=== PATIENT | female | born 1995 | race Caucasian/White ===

== ENCOUNTER 2017-01-07 19:45 | Emergency (ER) | payer MEDICAID, OTHER ==
[~2017-01-07] VITALS: Ht 167.6 cm; Wt 92.0 kg
[2017-01-07 19:47] VITALS: BP 143/69; PULSE 100; RESP 16; O2SAT 100
[2017-01-07] MEDS ORDERED: SODIUM CHLOR 0.9% 1000 ML INJ 1,000 ML IV SCH (21:45)
[2017-01-07] MEDS ORDERED: SODIUM CHLORIDE 0.9% FLUSH 10 ML FLUSH IV FLUSH PRN (21:45)
--- NOTE | 2017-01-07 21:56 | PD ---
HPI Chief Complaint: Abdominal Pain Time Seen by Provider: 21:52 Travel History International Travel<30 days: No Contact w/Intl Traveler<30days: No Traveled to known affect area: No History of Present Illness HPI Patient is a 21-year-old female presenting to emergency for evaluation of left lower quadrant abdominal pain that started approximate 5 PM this evening. Patient states the pain is 8 out of 10 and describes it as stabbing in nature. The pain radiates to her suprapubic region. Patient denies any fever, chills dysuria, vaginal discharge, vaginal bleeding. Patient states that she is approximately 11 weeks and has had an OB evaluation approximate 2 weeks ago. Patient states that she has constant vomiting with this reporting 4-5 episodes daily. She reports she was prescribed large medication but it made her itchy so she stopped taking it. This her first , her OB is Dr. Aviles. Patient denies any significant past medical history is currently taking vitamins. PFSH Past Medical History Medical History: Denies Significant Hx Diminished Hearing: No Immunizations Current: Yes ?: Past Surgical History Tonsillectomy: Yes (and adenoids) Social History Alcohol Use: No Tobacco Use: Yes (1 PPD) Substance Use: No Allergies-Medications (Allergen,Severity, Reaction): Coded Allergies: Percocet (Verified Allergy, Severe, HALLUCINATE, 01/07/17) Uncoded Allergies: diclegis (Allergy, Intermediate, 01/07/17) pt. 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 Resting comfortably in no acute distress. SKIN: Focused skin assessment warm/dry. HEAD: Atraumatic. Normocephalic. EYES: Pupils equal and round. No scleral icterus. No injection or drainage. ENT: No nasal bleeding or discharge. Mucous membranes pink and moist. NECK: Trachea midline. No JVD. CARDIOVASCULAR: Regular rate and rhythm. No murmur appreciated. RESPIRATORY: No accessory muscle use. Clear to auscultation. Breath sounds equal bilaterally. GASTROINTESTINAL: Abdomen soft, non-tender, nondistended. Hepatic and splenic margins not palpable. No rebound, no guarding. Positive bowel sounds. MUSCULOSKELETAL: No obvious deformities. No clubbing. No cyanosis. No edema. NEUROLOGICAL: Awake and alert. No obvious cranial nerve deficits. Motor grossly within normal limits. Normal speech. PSYCHIATRIC: Appropriate mood and affect; insight and judgment normal. Data Data Last Documented VS Vital Signs Date Time Temp Pulse Resp B/P Pulse Ox O2 Delivery O2 Flow Rate FiO2 01/07/17 23:02 98 01/07/17 19:47 100 16 143/69 Room Air Orders Complete Blood Count With Diff (01/07/17 21:45) Comprehensive Metabolic Panel (01/07/17 21:45) Lipase (01/07/17 21:45) Lactic Acid (01/07/17 21:45) Urinalysis - C+S If Indicated (01/07/17 21:45) Iv Access Insert/Monitor (01/07/17 21:45) Ecg Monitoring (01/07/17 21:45) Oximetry (01/07/17 21:45) Sodium Chlor 0.9% 1000 Ml Inj (Ns 1000 M (01/07/17 21:45) Sodium Chloride 0.9% Flush (Ns Flush) (01/07/17 21:45) Wet Prep Profile (01/07/17 21:45) Gc And Chlamydia Pcr (01/07/17 21:45) Oral Rehydration (01/08/17 00:07) Labs Laboratory Tests Test 01/07/17 01/07/17 01/07/17 22:10 22:15 23:30 White Blood Count 16.9 TH/MM3 Red Blood Count 4.40 MIL/MM3 Hemoglobin 12.5 GM/DL Hematocrit 36.0 % Mean Corpuscular Volume 81.7 FL Mean Corpuscular Hemoglobin 28.5 PG Mean Corpuscular Hemoglobin 34.9 % Concent Red Cell Distribution Width 13.8 % Platelet Count 338 TH/MM3 Mean Platelet Volume 7.1 FL Neutrophils (%) (Auto) 73.5 % Lymphocytes (%) (Auto) 20.2 % Monocytes (%) (Auto) 4.4 % Eosinophils (%) (Auto) 1.3 % Basophils (%) (Auto) 0.6 % Neutrophils # (Auto) 12.4 TH/MM3 Lymphocytes # (Auto) 3.4 TH/MM3 Monocytes # (Auto) 0.7 TH/MM3 Eosinophils # (Auto) 0.2 TH/MM3 Basophils # (Auto) 0.1 TH/MM3 CBC Comment DIFF FINAL Differential Comment Urine Color LIGHT-YELLOW Urine Turbidity CLEAR Urine pH 6.5 Urine Specific [place] 1.005 Urine Protein NEG mg/dL Urine Glucose (UA) NEG mg/dL Urine Ketones NEG mg/dL Urine Occult Blood NEG Urine Nitrite NEG Urine Bilirubin NEG Urine Urobilinogen LESS THAN 2.0 MG/DL Urine Leukocyte Esterase NEG Urine RBC 1 /hpf Urine WBC 1 /hpf Urine Squamous Epithelial 2 /hpf Cells Microscopic Urinalysis Comment CULT NOT INDICATED Lactic Acid Level 0.7 mmol/L Clue Cells (Wet Prep) NONE SEEN Vaginal Trichomonas (Wet Prep) NONE SEEN Vaginal Yeast (Wet Prep) NONE SEEN Chlamydia trachomatis DNA NOT DETECTED (PCR) Neisseria gonorrhoeae DNA NOT DETECTED (PCR) Sodium Level 141 MEQ/L Potassium Level 3.5 MEQ/L Chloride Level 107 MEQ/L Carbon Dioxide Level 24.6 MEQ/L Anion Gap 9 MEQ/L Blood Urea Nitrogen 3 MG/DL Creatinine 0.50 MG/DL Estimat Glomerular Filtration 156 ML/MIN Rate Random Glucose 78 MG/DL Calcium Level 8.6 MG/DL Total Bilirubin 0.2 MG/DL Aspartate Amino Transf 9 U/L (AST/SGOT) Alanine Aminotransferase 17 U/L (ALT/SGPT) Alkaline Phosphatase 107 U/L Total Protein 6.0 GM/DL Albumin 2.9 GM/DL Lipase 74 U/L [facility] Medical Decision Making Medical Screen Exam Complete: Yes Emergency Medical Condition: Yes Interpretation(s) Vital Signs Date Time Temp Pulse Resp B/P Pulse Ox O2 Delivery O2 Flow Rate FiO2 01/07/17 19:47 100 16 143/69 100 Room Air Differential Diagnosis Round ligament pain versus diverticulitis versus colitis versus ovarian cyst versus urinary tract infection versus hyperemesis gravidarum versus electrolyte abnormality Narrative Course Patient is a 21-year-old female presenting to emergency evaluation of abdominal pain that started approximately 5 PM this evening. Pain is localized to left lower quadrant with radiation to the suprapubic region. During the course of her patient has had consistent nausea with vomiting. She saw OB 2 weeks ago and had labs and a pelvic exam performed per her report. Upon arrival to medical bed a bedside ultrasound was performed, there were heart tones noted and movement noted. Labs ordered and pending. GENITOURINARY: Normal external genitalia without lesions or erythema. Vaginal vault without blood or drainage. Cervical os was closed without drainage. No cervical motion tenderness. Uterus nontender. Bilateral adnexa nontender without masses. Labs ordered and pending. Care of patient will be transferred to my attending physician Dr. Weiss at the end of my shift. She will determine patient's disposition. Scripts No Active Prescriptions or Reported Meds Shandra Mcdonough [facility] Jan 07, 2017 21:56
[2017-01-07 22:39] LABS: AUTOMATED NEUTROPHIL # 12.4 TH/MM3 (1.8-7.7); BASOPHIL # 0.1 TH/MM3 (0-0.2); BASOPHIL % 0.6 % (0.0-2.0); EOSINOPHIL # 0.2 TH/MM3 (0-0.4); EOSINOPHIL % 1.3 % (0.0-4.0); HEMO FLAGS DIFF FINAL; LYMPH % 20.2 % (9.0-44.0); LYMPHOCYTE # 3.4 TH/MM3 (1.0-4.8); MEAN CELL VOLUME 81.7 FL (80.0-100.0); MEAN CORPUSCULAR HEMOGLOBIN 28.5 PG (27.0-34.0); MEAN CORPUSCULAR HGB CONC 34.9 % (32.0-36.0); MONO % 4.4 % (0.0-8.0); NEUT % 73.5 % (16.0-70.0); PLATELET COUNT 338 TH/MM3 (150-450); RED CELL DISTRIBUTION WIDTH 13.8 % (11.6-17.2); WHITE BLOOD COUNT 16.9 TH/MM3 (4.0-11.0)
--- NOTE | 2017-01-07 22:57 | PD ---
Data Data Last Documented VS Vital Signs Date Time Temp Pulse Resp B/P Pulse Ox O2 Delivery O2 Flow Rate FiO2 01/07/17 23:02 98 01/07/17 19:47 100 16 143/69 Room Air Orders Complete Blood Count With Diff (01/07/17 21:45) Comprehensive Metabolic Panel (01/07/17 21:45) Lipase (01/07/17 21:45) Lactic Acid (01/07/17 21:45) Urinalysis - C+S If Indicated (01/07/17 21:45) Iv Access Insert/Monitor (01/07/17 21:45) Ecg Monitoring (01/07/17 21:45) Oximetry (01/07/17 21:45) Sodium Chlor 0.9% 1000 Ml Inj (Ns 1000 M (01/07/17 21:45) Sodium Chloride 0.9% Flush (Ns Flush) (01/07/17 21:45) Wet Prep Profile (01/07/17 21:45) Gc And Chlamydia Pcr (01/07/17 21:45) Oral Rehydration (01/08/17 00:07) Labs Laboratory Tests Test 01/07/17 01/07/17 01/07/17 22:10 22:15 23:30 White Blood Count 16.9 TH/MM3 Red Blood Count 4.40 MIL/MM3 Hemoglobin 12.5 GM/DL Hematocrit 36.0 % Mean Corpuscular Volume 81.7 FL Mean Corpuscular Hemoglobin 28.5 PG Mean Corpuscular Hemoglobin 34.9 % Concent Red Cell Distribution Width 13.8 % Platelet Count 338 TH/MM3 Mean Platelet Volume 7.1 FL Neutrophils (%) (Auto) 73.5 % Lymphocytes (%) (Auto) 20.2 % Monocytes (%) (Auto) 4.4 % Eosinophils (%) (Auto) 1.3 % Basophils (%) (Auto) 0.6 % Neutrophils # (Auto) 12.4 TH/MM3 Lymphocytes # (Auto) 3.4 TH/MM3 Monocytes # (Auto) 0.7 TH/MM3 Eosinophils # (Auto) 0.2 TH/MM3 Basophils # (Auto) 0.1 TH/MM3 CBC Comment DIFF FINAL Differential Comment Urine Color LIGHT-YELLOW Urine Turbidity CLEAR Urine pH 6.5 Urine Specific [place] 1.005 Urine Protein NEG mg/dL Urine Glucose (UA) NEG mg/dL Urine Ketones NEG mg/dL Urine Occult Blood NEG Urine Nitrite NEG Urine Bilirubin NEG Urine Urobilinogen LESS THAN 2.0 MG/DL Urine Leukocyte Esterase NEG Urine RBC 1 /hpf Urine WBC 1 /hpf Urine Squamous Epithelial 2 /hpf Cells Microscopic Urinalysis Comment CULT NOT INDICATED Lactic Acid Level 0.7 mmol/L Clue Cells (Wet Prep) NONE SEEN Vaginal Trichomonas (Wet Prep) NONE SEEN Vaginal Yeast (Wet Prep) NONE SEEN Sodium Level 141 MEQ/L Potassium Level 3.5 MEQ/L Chloride Level 107 MEQ/L Carbon Dioxide Level 24.6 MEQ/L Anion Gap 9 MEQ/L Blood Urea Nitrogen 3 MG/DL Creatinine 0.50 MG/DL Estimat Glomerular Filtration 156 ML/MIN Rate Random Glucose 78 MG/DL Calcium Level 8.6 MG/DL Total Bilirubin 0.2 MG/DL Aspartate Amino Transf 9 U/L (AST/SGOT) Alanine Aminotransferase 17 U/L (ALT/SGPT) Alkaline Phosphatase 107 U/L Total Protein 6.0 GM/DL Albumin 2.9 GM/DL Lipase 74 U/L [facility] Medical Record Reviewed: Yes Supervised Visit with MEENAKSHI: No Narrative Course During the course of the patients emergency department visit, the patients history, examination, and differential diagnosis were reviewed with the patient. The patient had IV access obtained and blood work sent for analysis. The patient's case was assumed from [facility]. Please see her complete history and physical. The patient's care was assumed at the conclusion of her shift. The patient is a 21-year-old female who presents with lower abdominal pain at reported 11 weeks gestation. The patient has also been experiencing nausea and vomiting during the first trimester of her . The patient was provided normal saline IV fluids. The patient was started on oral rehydration therapy and tolerated it well. The patients laboratory studies were reviewed and remarkable for a white count 16.9, hemoglobin 12.5, platelets 338 with 73.5 neutrophils, CMP is unremarkable. Lactic acid 0.7, urinalysis within normal limits wet prep is unremarkable The patient had an ultrasound done by [facility] that reveals heart activity. The patient's elevated white blood cell count is likely related to the patient' s reported recent vomiting. The patient reports that she would like to avoid taking any type of antinausea medication and her . The patient was encouraged to eat small frequent meals, push fluids with an electrolyte rich solution. The patient is instructed to follow-up with her [employer] for reexamination this week. The patient is resting comfortably and feels better, is alert and in no distress. The patients results and examination findings were discussed with the patient. The repeat examination is unremarkable and benign. The history, exam, diagnostic testing, and current condition do not suggest any significant pathology to warrant further testing, continued ED treatment, admission, or surgical evaluation at this point. The vital signs have been stable. The patient does not have uncontrollable pain, intractable vomiting, or other significant symptoms. The patient's condition is stable and appropriate for discharge. The patient will pursue further outpatient evaluation with a primary care physician or other designated or consulting physician as indicated in the discharge instructions. The patient expressed understanding and was agreeable with this plan. Diagnosis Primary Impression: Abdominal pain affecting Referrals: Fitness Manager 2 days Patient Instructions: Abdominal Pain in (ED), General Instructions Additional Instruction: The patient is instructed that she can take Tylenol as needed for discomfort. Scripts No Active Prescriptions or Reported Meds Disposition: 01 DISCHARGE HOME Condition: Stable Denise Weiss MD Jan 07, 2017 22:57
[2017-01-07 22:59] LABS: BLOOD, URINE NEG (NEG); GLUCOSE,URINE NEG (NEG); KETONE, URINE NEG (NEG); NITRITE,URINE NEG (NEG); PH, URINE 6.5 (5.0-8.5); SQUAMOUS EPITHELIAL CELL URINE 2 /hpf (0-5); URINE COLOR LIGHT-YELLOW (YELLW/STRAW)
[2017-01-07 23:00] LABS: COMMENT (UR) CULT NOT INDICATED; CULTURE IF INDICATED CULT NOT INDICATED
[2017-01-07 23:02] VITALS: O2SAT 98
[2017-01-07 23:59] LABS: ANION GAP 9 MEQ/L (5-15); AST (GOT) 9 U/L (15-37); BICARBONATE 24.6 MEQ/L (21.0-32.0); BLOOD UREA NITROGEN 3 MG/DL (7-18); CHLORIDE 107 MEQ/L (98-107); GLOMERULAR FILTRATION RATE 156 ML/MIN (>89); POTASSIUM 3.5 MEQ/L (3.5-5.1); SODIUM (NA) 141 MEQ/L (136-145)
[2017-01-08 00:02] LABS: ALKALINE PHOSPHATASE 107 U/L (45-117); ALT (GPT) 17 U/L (10-53); TOTAL BILIRUBIN ADULT 0.2 MG/DL (0.2-1.0)
[2017-01-08 01:48] LABS: CHLAMYDIA PCR NOT DETECTED (NOT DETECT); NEISSERIA PCR NOT DETECTED (NOT DETECT)
== END 2017-01-08 01:42 | disposition home or self-care (01) ==
LOC: NEPC 19:45
DX: O26.91 Pregnancy related conditions, unspecified, first trimester (principal); O99.331 Smoking (tobacco) complicating pregnancy, first trimester; R11.2 Nausea with vomiting, unspecified; F17.210 Nicotine dependence, cigarettes, uncomplicated; Z3A.11 11 weeks gestation of pregnancy
CPT/HCPCS: 80053; 81001; 83605; 83690; 85025; 87210; 87491; 87591; 96360; 99284; J7030

== ENCOUNTER → 2017-05-11 | Emergency (ER) | payer MEDICAID ==
--- NOTE | 2017-05-11 22:23 | PD ---
HPI Chief Complaint Left-sided abdominal pain Date Seen: May 11, 2017 Travel History International Travel<30 Days: No Contact w/Intl Traveler<30Days: No Known Affected Area: No History of Present Illness HPI Patient is 21-year-old white female at 29 weeks 2 goes [facility] for care and sees Dr. Aviles. She has been doing well having no problems until tonight when she climb ed up into a tall truck and strained something and felt pain in that pain is persisted since that time, denies leakage of fluid or bleeding. Baby is active. heart rate tracing is reactive. Her 29 weeks. The contractions seen. Para: 0 : 1 History Social History Alcohol Use: No Tobacco Use: No Substance Abuse: No Allergies-Medications (Allergen,Severity, Reaction): Coded Allergies: Percocet (Verified Allergy, Severe, HALLUCINATE, 01/07/17) Uncoded Allergies: diclegis (Allergy, Intermediate, 01/07/17) pt. states drug allergy to this med givien to her by her neurology nurse Home Meds No Active Prescriptions or Reported Meds Review of Systems General / Constitutional: No: Fever, Weight Gain, Chills, Other Eyes: No: Diploplia, Blurred Vision, Visual changes, Pain, Photophobia HENT: No: Headaches, Vertigo, Lightheadedness Cardiovascular: No: Irregular Rhythm, Chest Pain or Discomfort, Palpitations, Tachycardia, Syncope, Varicosities, Edema, Cyanosis Respiratory: No: Cough, Short of Breath, Other Gastrointestinal: Abdominal Pain, No: Nausea, Vomiting, Diarrhea Genitourinary: No: Decreased Urinary Output, Oliguria Musculoskeletal: No: Limited ROM, Weakness, Cramping, Edema, Pain Skin: No Rash, No Itching, No Dryness, No Lumps, No Change in Pigmentation, No Change in Nails, No Alopecia, No Lesions Neurologic: No: Weakness, Dizziness, Syncope, Focal Abnormalities, Coordination Problem, Headache, Slurred Speech, Seizures Psychiatric: No: Depression, Suicidal Ideations, Homicidal Ideation Endocrine: No: Heat Intolerance, Cold Intolerance, Polydipsia, Polyuria, Other Physical Exam Narrative GENERAL: Well-nourished, well-developed patient. SKIN: Warm and dry. HEAD: Normocephalic and atraumatic. EYES: No scleral icterus. No injection or drainage. ENT: No nasal drainage noted. Mucous membranes pink. Airway patent. NECK: Supple, trachea midline. No JVD. CARDIOVASCULAR: Regular rate and rhythm without murmurs, gallops, or rubs. RESPIRATORY: Breath sounds equal bilaterally. No accessory muscle use. BREASTS: Bilateral exam showed no masses , no retractions, no nipple discharge. ABDOMEN/GI: Abdomen soft, non-tender, bowel sounds present, no rebound, no guarding Gravid to [-29] weeks size Fundal Height: [29-] GENITOURINARY: External Genitalia: intact and normal in appearance BUS glands: [-] Cervix: [-] Dilatation: [-Closed] Effacement: [-] Thick Station: [-3] Membranes: [intact ] Uterine Contractions: [-none] FHT's: Category: [1-] Baseline: [-133] Reactive: [yes-] Variability: [mod-] Decels: [none-] EXTREMITIES: No cyanosis or edema. BACK: Nontender without obvious deformity. No CVA tenderness. NEUROLOGICAL: Awake and alert. Motor and sensory grossly within normal limits. Five out of 5 muscle strength in all muscle groups. Normal speech. Data Data Labs Urine dipstick showed trace of blood otherwise negative MDM Interpretation(s) 21-year-old white female at 29 weeks who is had some left-sided abdominal pain sensate trying to climb up into a truck this evening and strain something is been hurting since. She is not taking any medication Tylenol or anything for this. She was out when she did it and she just called with . came on up here. heart rate tracing is reactive no contractions seen. Urine dipstick negative. Cervix is closed and long. Pain is related to the strain the ligament or muscle and her side from dry and foolishly climbing up into some giant truck when you're 29 weeks Plan Plan this patient be admitted bedrest over the next day or 2 with heating pad and or hot bath for pain relief Tylenol as well. And if she does not improve see her OB provider Diagnosis Diagnosis: Primary Impression: Abdominal pain affecting Disposition: DISCHARGE HOME Condition: Stable Scripts No Active Prescriptions or Reported Meds Amado Medina II, MD May 11, 2017 22:23
== END | disposition home or self-care (01) ==
LOC: HOBED 21:40
DX: O26.893 Other specified pregnancy related conditions, third trimester (principal); R10.9 Unspecified abdominal pain; Z3A.29 29 weeks gestation of pregnancy; Z88.5 Allergy status to narcotic agent; Z88.8 Allergy status to other drugs, medicaments and biological substances
CPT/HCPCS: 99282

== ENCOUNTER 2017-07-22 08:11 | Inpatient (IN) | payer MEDICAID ==
[2017-07-22] VITALS (48 sets, daily range): BP systolic 86–138; BP diastolic 16–89; PULSE 66–226; RESP 16–20; TEMP 97.9–98.1
[~2017-07-22] VITALS: Ht 152.4 cm; Wt 108.9 kg
[2017-07-22] MEDS ORDERED: LACTATED RINGER'S 1000 ML INJ 1,000 ML IV PRN (09:03)
[2017-07-22] MEDS ORDERED: LIDOCAINE HCL 1% 50 ML VIAL INFIL PRN (09:15)
[2017-07-22] MEDS ORDERED: SODIUM CHLORID 0.9% 500 ML INJ 500 ML IV PRN (09:15)
[2017-07-22] MEDS ORDERED: MINERAL OIL 10 ML VIAL TOPICAL PRN (09:15)
[2017-07-22] MEDS ORDERED: LIDOCAINE HCL 1% 50 ML VIAL I-DERMAL PRN (09:15)
[2017-07-22] MEDS ORDERED: OXYTOCIN 30 UNITS-500ML PREMIX 500 ML IV ONE (09:15)
[2017-07-22] MEDS ORDERED: CITRIC ACID-SODIUM CITRATE LIQ 30 ML UDC PO SCH (09:15)
[2017-07-22] MEDS ORDERED: SODIUM CHLOR 0.9% 1000 ML INJ 1,000 ML IV PRN (09:23)
--- NOTE | 2017-07-22 10:10 | HHI.HP ---
History & Physical H&P HPI HPI Chief Complaint Leaking fluid Date Seen: Jul 22, 2017 Time Seen: 08:30 Travel History International Travel<30 Days: No Contact w/Intl Traveler<30Days: No Known Affected Area: No History of Present Illness HPI 21-year-old 1 at 39-3/7 weeks gestation who reports leakage of clear fluid. She has had mild cramping but no bleeding. She reports good movement. She was 3 cm dilated by her report at her last visit. History (Limited) History Medical history:none Surgical history: None Obstetrical history: Primigravida with uncomplicated care with Dr. Rivas Allergies-Medications Allergies-Medications (Allergen,Severity, Reaction): Coded Allergies: acetaminophen (Unverified Allergy, Severe, HALLUCINATE, 05/14/17) oxycodone (Unverified Allergy, Severe, HALLUCINATE, 05/14/17) Uncoded Allergies: diclegis (Allergy, Intermediate, 01/07/17) pt. 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 SKIN: Warm and dry. HEAD: Normocephalic and atraumatic. EYES: No scleral icterus. No injection or drainage. ENT: No nasal drainage noted. Mucous membranes pink. Airway patent. NECK: Supple, trachea midline. No JVD. CARDIOVASCULAR: Regular rate and rhythm without murmurs, gallops, or rubs. RESPIRATORY: Breath sounds equal bilaterally. No accessory muscle use. ABDOMEN/GI: Abdomen soft, non-tender, bowel sounds present, no rebound, no guarding Gravid to [-] weeks size Fundal Height: [-] GENITOURINARY: External Genitalia: intact and normal in appearance BUS glands: [-] Cervix: [3-] Dilatation: [] Effacement: [-70] Station: [--2] Presentation: [Vertex-] Membranes: [ruptured] Uterine Contractions: [Mild irregular-] FHT's: Category: [1-] Baseline: [-] Reactive: [-] Variability: [-] Decels: [-] EXTREMITIES: No cyanosis or edema. BACK: Nontender without obvious deformity. No CVA tenderness. NEUROLOGICAL: Awake and alert. Motor and sensory grossly within normal limits. Five out of 5 muscle strength in all muscle groups. Normal speech. Data Data Data Vital Signs Reviewed: Yes Orders Orders Ob (2e) Additional Admit Info (07/22/17 08:58) Pamg-1 Test .ONCE (07/22/17 09:03) Admit To Inpatient (07/22/17 ) Code Status (07/22/17 09:03) Vital Signs (Adult) .Per protocol (07/22/17 09:03) Activity Oob Ad Yee (07/22/17 09:03) Heart (07/22/17:) Amnioinfusion (07/22/17 09:03) Urinary Catheter Management .ONCE (07/22/17 09:03) Diet Liquid (07/22/17 Breakfast) Lactated Ringer's 1000 Ml Inj (Lr 1000 M (07/22/17 09:03) Lactated Ringer's 1000 Ml Inj (Lr 1000 M (07/22/17 09:03) Sodium Chlorid 0.9% 500 Ml Inj (Ns 500 M (07/22/17 09:15) Sodium Chlor 0.9% 1000 Ml Inj (Ns 1000 M (07/22/17 09:23) Lidocaine 1% Inj (50 Ml) (Xylocaine 1% I (07/22/17 09:15) Citric Acid-Sodium Citrate Liq (Bicitra (07/22/17 09:15) Fentanyl Inj (Fentanyl Inj) (07/22/17 09:15) Fentanyl Inj (Fentanyl Inj) (07/22/17 09:15) Complete Blood Count With Diff (07/22/17 09:03) Hold Clot (07/22/17 09:03) Abo/Rh Blood Type (07/22/17 09:03) Urinalysis - C+S If Indicated (07/22/17 09:03) Resp Oxygen Non Rebreathe Mask (07/22/17 ) ^ Epidural / Intrathecal Infus (07/22/17 09:03) Oxytocin 30 Units-500ml Premix (Pitocin (07/22/17 09:15) Lidocaine 1% Inj (50 Ml) (Xylocaine 1% I (07/22/17 09:15) Light Mineral Oil (Muri-Lube Oil) (07/22/17 09:15) Inpatient Certification (07/22/17 ) Ob/Psych Drug Screen, Urine (07/22/17 09:18) Group B Strep: Negative MDM MDM Medical Record Reviewed: Yes Narrative Course / MDM Assessment: Primigravida at 39+ weeks gestation with ruptured membranes, category 1 heart rate Plan: Admit for labor management Scripts No Active Prescriptions or Reported Meds Harrison Stack MD Jul 22, 2017 10:07 Harrison Stack MD Jul 22, 2017 10:10
[2017-07-22 11:23] LABS: AUTOMATED NEUTROPHIL # 14.1 TH/MM3 (1.8-7.7); BASOPHIL % 0.3 % (0.0-2.0); EOSINOPHIL # 0.1 TH/MM3 (0-0.4); EOSINOPHIL % 0.6 % (0.0-4.0); HEMATOCRIT 35.9 % (35.0-46.0); HEMO FLAGS DIFF FINAL; LYMPH % 13.1 % (9.0-44.0); LYMPHOCYTE # 2.3 TH/MM3 (1.0-4.8); MEAN CELL VOLUME 84.5 FL (80.0-100.0); MEAN CORPUSCULAR HEMOGLOBIN 28.7 PG (27.0-34.0); MEAN CORPUSCULAR HGB CONC 33.9 % (32.0-36.0); MONO % 4.2 % (0.0-8.0); NEUT % 81.8 % (16.0-70.0); PLATELET COUNT 365 TH/MM3 (150-450); RED BLOOD COUNT 4.25 MIL/MM3 (4.00-5.30); RED CELL DISTRIBUTION WIDTH 14.8 % (11.6-17.2); WHITE BLOOD COUNT 17.2 TH/MM3 (4.0-11.0)
[2017-07-22 11:31] LABS: BLOOD, URINE NEG (NEG); COMMENT (UR) CULTURE INDICATED; CULTURE IF INDICATED CULTURE INDICATED; GLUCOSE,URINE NEG (NEG); KETONE, URINE NEG (NEG); MUCUS URINE FEW /lpf (OCC); NITRITE,URINE NEG (NEG); PH, URINE 6.5 (5.0-8.5); SQUAMOUS EPITHELIAL CELL URINE 1 /hpf (0-5); URINE COLOR LIGHT-YELLOW (YELLW/STRAW)
[2017-07-22] MEDS: LACTATED RINGER'S 1000 ML INJ 1,000 ML IV SCH ×2 (11:42→15:34)
[2017-07-22] MEDS ORDERED: OXYTOCIN 30 UNITS/NS 500ML PREMIX IV SCH (11:45)
[2017-07-22] MEDS ORDERED: fentaNYL 2MCG-BUPIV 0.125% INJ 100 ML ONE (13:51)
[2017-07-22] MEDS ORDERED: fentaNYL 2MCG-BUPIV 0.125% 100 ML EPIDURAL SCH (15:15)
[2017-07-22] MEDS ORDERED: DO NOT ADMINISTER ANTICOAGULANTS PRN (15:15)
[2017-07-22] MEDS ORDERED: ePHEDrine/NS 25 MG/5 ML SYR IV PUSH PRN (15:15)
[2017-07-22] MEDS ORDERED: NO SYSTEM NARCOTICS PRN (15:15)
[2017-07-23] VITALS (20 sets, daily range): BP systolic 86–141; BP diastolic 51–96; PULSE 84–126; RESP 16–18; TEMP 97.7–99.2
--- NOTE | 2017-07-23 01:24 | PD.OB.DELI ---
Weeks gestation: 39 Gest age assessed date: Jul 22, 2017 Gest age assessed time: 11:00 Pt started active labor?: Yes Medical induction of labor?: No Artificial rupture of membrane: No Anesthesia: Epidural Episiotomy: Midline (perineal) Vaginal Delivery: Normal, Spontaneous Presentation: Occiput anterior Nuchal Cord: x1 (reduced at perineum) Delayed cord clamping (45 sec): No (due to need for respiratory/pediatric intervention) Infant: Female Delivery date: Jul 23, 2017 Delivery time: 01:04 One Minute : 8 Five Minute : 9 Weight: 8#6oz Placenta: Spontaneous delivery, Intact, 3 vessel cord Laceration: Episiotomy (midline perineal 2nd degree) Repair: Chromic running Estimated blood loss: 200 mL Lakshmi Banda MD Jul 23, 2017 01:24
[2017-07-23] MEDS ORDERED: IBUP-232 PO (01:25)
[2017-07-23] MEDS ORDERED: SODIUM CHLORIDE 0.9% FLUSH 10 ML FLUSH IV FLUSH PRN (01:30)
[2017-07-23] MEDS ORDERED: OXYTOCIN 30 UNITS-500ML PREMIX 500 ML IV SCH (01:30)
[2017-07-23] MEDS ORDERED: ZOLPIDEM TARTRATE 5 MG TAB PO PRN (01:30)
[2017-07-23] MEDS ORDERED: DOCUSATE SODIUM 50 MG/SENNA 8.6 MG TAB PO PRN (01:30)
[2017-07-23] MEDS ORDERED: SODIUM CHLORIDE 0.9% FLUSH 10 ML FLUSH IV FLUSH SCH (01:30)
[2017-07-23] MEDS ORDERED: ONDANSETRON ODT 4 MG TAB PO PRN (01:30)
[2017-07-23] MEDS ORDERED: ALUMINUM/MAGNESIUM/SIMETH 30 ML CUP PO PRN (01:30)
[2017-07-23] MEDS: BENZOCAINE 20% TOPICAL SPRAY 60 ML CAN TOPICAL PRN (03:55)
[2017-07-23] MEDS: WITCH HAZEL 50%/GLYCERIN 12.5% 40 PAD JAR TOPICAL PRN (03:55)
[2017-07-23] MEDS: IBUPROFEN 600 MG TAB PO PRN ×4 (03:57→22:39)
[2017-07-23] MEDS ORDERED: INFLUENZA VIRUS VACCINE (QUADRIVALENT) 0.5 ML SYR IM ONE (10:00)
[2017-07-23] MEDS ORDERED: MEASLES, MUMPS, RUBELLA VACCINE 0.5 ML VIAL SQ ONE (16:00)
[2017-07-23] MEDS ORDERED: DIPHTH/TETANUS/ACEL PERTUSSIS (BOOSTER) 0.5 ML VIAL/PFS IM ONE (16:00)
[2017-07-24] MEDS: IBUPROFEN 600 MG TAB PO PRN ×3 (07:13→20:24)
[2017-07-24 07:16] VITALS: BP 118/54; PULSE 72; RESP 18; TEMP 97.9
--- NOTE | 2017-07-24 08:24 | HHI.OB ---
Subjective Post Day: 1 Remarks s/p FT around 1am yesterday Objective Vitals/I&O Vital Signs Date Time Temp Pulse Resp B/P (MAP) Pulse Ox O2 Delivery O2 Flow Rate FiO2 07/24/17 07:16 97.9 18 07/24/17 07:16 72 118/54 (75) 07/23/17 19:28 97.7 84 18 113/61 (78) Objective Remarks GENERAL: Well-nourished, well-developed patient. Obese. CARDIOVASCULAR: Regular rate and rhythm without murmurs, gallops, or rubs. RESPIRATORY: Breath sounds equal bilaterally. No accessory muscle use. ABDOMEN/GI: Abdomen soft, non-tender. Fundus: Firm, non-tender at umbilicus. GENITOURINARY: Light bleeding. EXTREMITIES: No cyanosis or edema, non-tender, without signs of DVT. Medications and IVs Current Medications Medications (Trade) Dose Ordered Sig/Clementina Route Start Time Stop Time Status Last Admin (NS Flush) 2 ml BID IV FLUSH 07/23/17 01:30 (NS Flush) 2 ml UNSCH PRN IV FLUSH 07/23/17 01:30 (Motrin) 600 mg Q6H PRN PO 07/23/17 01:30 07/24/17 07:13 (Americaine 20% Top Spr) 1 spray Q4H PRN TOPICAL 07/23/17 01:30 07/23/17 03:55 (Tucks Pads) 1 applic QID PRN TOPICAL 07/23/17 01:30 07/23/17 03:55 (Saima-Colace) 2 tab Q12H PRN PO 07/23/17 01:30 07/24/17 07:13 (Ambien) 5 mg HS PRN PO 07/23/17 01:30 (Mag-Al Plus Susp Liq) 15 ml Q8H PRN PO 07/23/17 01:30 (Zofran Odt) 4 mg Q6H PRN PO 07/23/17 01:30 Assessment/Plan Problem List: (1) (spontaneous vaginal delivery) ICD Codes: O80 - Encounter for full-term uncomplicated delivery Status: Acute Assessment and Plan PPD#1 delivered close to 1am yesterday, d/w pt ok to d/c to home today routine PP care office f/u 2 & 6 wks Discharge Planning routine Lakshmi Banda MD Jul 24, 2017 08:24
--- NOTE | 2017-07-24 08:24 | HHI.DCPOC ---
Discharge Care Plan Diagnosis: (1) (spontaneous vaginal delivery) Your Health Problems Are: Vaginal delivery Report Symptoms to Your Doctor -Temperature above 100.5 degrees -Redness, of incision or excessive or foul smelling drainage -Unusual pain or calf pain -Increased vaginal bleeding -Painful or difficulty urinating -Feelings of extreme sadness or anxiety after 2 weeks Goals to Promote Your Health * To prevent worsening of your condition and complications * To maintain your health at the optimal level Directions to Meet Your Goals Take your medications as prescribed Follow your dietary instruction Follow activity as directed Ensure plenty of rest for recovery Drink fluids for hydration Keep your appointments as scheduled Take your immunizations and boosters as scheduled If your symptoms worsen call your PCP, if no PCP go to Urgent Care Center or Emergency Room Smoking is Dangerous to Your Health. Avoid second hand smoke Call the 24-hour crisis hotline for domestic abuse at Lakshmi Banda MD Jul 24, 2017 08:24
[2017-07-24] MEDS: BENZOCAINE 20% TOPICAL SPRAY 60 ML CAN TOPICAL PRN (17:41)
[2017-07-24] MEDS: WITCH HAZEL 50%/GLYCERIN 12.5% 40 PAD JAR TOPICAL PRN (17:41)
[2017-07-24 20:00] VITALS: BP 118/63; PULSE 77; RESP 18; TEMP 98.3
[2017-07-25] MEDS: IBUPROFEN 600 MG TAB PO PRN ×2 (02:46→08:57)
--- NOTE | 2017-07-25 07:17 | HHI.OB ---
Subjective Post Day: 2 Remarks doing well, baby doing well Objective Vitals/I&O Vital Signs Date Time Temp Pulse Resp B/P (MAP) Pulse Ox O2 Delivery O2 Flow Rate FiO2 07/24/17 20:00 98.3 77 18 118/63 (81) 07/24/17 07:16 97.9 18 07/24/17 07:16 72 118/54 (75) Objective Remarks GENERAL: Well-nourished, well-developed patient. Obese. CARDIOVASCULAR: Regular rate and rhythm without murmurs, gallops, or rubs. RESPIRATORY: Breath sounds equal bilaterally. No accessory muscle use. ABDOMEN/GI: Abdomen soft, non-tender. Fundus: Firm, non-tender at umbilicus. GENITOURINARY: Light bleeding. EXTREMITIES:trace edema. No cyanosis non-tender, without signs of DVT. Medications and IVs Current Medications Medications (Trade) Dose Ordered Sig/Clementina Route Start Time Stop Time Status Last Admin (NS Flush) 2 ml BID IV FLUSH 07/23/17 01:30 (NS Flush) 2 ml UNSCH PRN IV FLUSH 07/23/17 01:30 (Motrin) 600 mg Q6H PRN PO 07/23/17 01:30 07/25/17 02:46 (Americaine 20% Top Spr) 1 spray Q4H PRN TOPICAL 07/23/17 01:30 07/24/17 17:41 (Tucks Pads) 1 applic QID PRN TOPICAL 07/23/17 01:30 07/24/17 17:41 (Saima-Colace) 2 tab Q12H PRN PO 07/23/17 01:30 07/24/17 07:13 (Ambien) 5 mg HS PRN PO 07/23/17 01:30 (Mag-Al Plus Susp Liq) 15 ml Q8H PRN PO 07/23/17 01:30 (Zofran Odt) 4 mg Q6H PRN PO 07/23/17 01:30 Assessment/Plan Problem List: (1) (spontaneous vaginal delivery) ICD Codes: O80 - Encounter for full-term uncomplicated delivery Status: Acute Assessment and Plan PPD2 w episiotomy routine PP care office f/u 2 & 6 wks Discharge Planning routine Liz Ghosh MD Jul 25, 2017 07:17
[2017-07-25 07:50] VITALS: BP 117/53; PULSE 76; RESP 16; TEMP 98.5
[2017-07-25 10:14] LABS: BATH SALTS (MDPV) UR NEG (NEG); ECSTASY (MDMA) UR NEG (NEG); GABAPENTIN UR NEG (NEG); HEROIN (6-ACETYLMORPHINE) UR NEG (NEG); HYDROMORPHONE U NEG (NEG); K2 SPICE UR NEG (NEG); OBMETHADONE UR NEG (NEG); PHENCYCLIDINE URINE NEG (NEG)
== END 2017-07-25 10:51 | disposition home or self-care (01) | DRG 775 ==
LOC: HOBED 08:11 → H2EB 09:05 → H1EA 07-23 03:08
PROVIDERS: ADMIT Obstetrics & Gynecology; ATTEND Obstetrics & Gynecology
PROC: 00HU33Z Insertion of Infusion Device into Spinal Canal, Percutaneous Approach (ICD-10-PCS; 2017-07-22)
PROC: 3E0R3BZ Introduction of Anesthetic Agent into Spinal Canal, Percutaneous Approach (ICD-10-PCS; 2017-07-22)
PROC: 10E0XZZ Delivery of Products of Conception, External Approach (ICD-10-PCS; principal; 2017-07-23)
PROC: 0W8NXZZ Division of Female Perineum, External Approach (ICD-10-PCS; 2017-07-23)
DX: O99.214 Obesity complicating childbirth (principal); Z68.42 Body mass index [BMI] 45.0-49.9, adult; E66.9 Obesity, unspecified; O69.81X0 Labor and delivery complicated by cord around neck, without compression, not applicable or unspecified; Z3A.39 39 weeks gestation of pregnancy; Z37.0 Single live birth; Z23 Encounter for immunization
CPT/HCPCS: 80307; 81001; 84112; 85025; 85461; 86850; 86900; 86901; 87086; 90384; 90686; 90707; 90715; G0481; J2590; J2790; J7120; Q2038